=== PATIENT | male | born 1980 | race Two or more races ===

== ENCOUNTER 2023-02-24 15:30 | Emergency (ER) | payer BC, OTHER ==
[~2023-02-24] VITALS: Ht 177.8 cm; Wt 140.3 kg
[2023-02-24 19:29] VITALS: BP 138/93; PULSE 86; RESP 18; TEMP 97.8; O2SAT 98
[2023-02-24] MEDS ORDERED: LIDOCAINE 1% HCL (LOCAL ANESTH.) INJ 20ML MDV ONE (20:00)
[2023-02-24] MEDS ORDERED: TETANUS-DIPTH-ACEL PERTUSSIS 0.5ML SYR Tdap IM ONE (20:00)
[2023-02-24] MEDS ORDERED: LIDOCAINE 1% HCL (LOCAL ANESTH.) INJ 20ML MDV ID ONE (20:00)
[2023-02-24] MEDS ORDERED: AMOXICILLIN/CLAVUL 875 MG TAB PO ONE (20:00)
[2023-02-24] MEDS ORDERED: MUPI2OIN2 EX (20:43)
[2023-02-24] MEDS ORDERED: AUG875T PO (20:43)
[2023-02-24] MEDS ORDERED: IBUP1TAB5 PO (20:43)
== END 2023-02-24 20:53 | disposition home or self-care (01) ==
LOC: ER 15:30
DX: S51.812A Laceration without foreign body of left forearm, initial encounter (principal); Z79.899 Other long term (current) drug therapy; W54.0XXA Bitten by dog, initial encounter; Y93.89 Activity, other specified; Y92.89 Other specified places as the place of occurrence of the external cause; Y99.8 Other external cause status
CPT/HCPCS: 12004; 90471; 90715; 99283; J2001